=== PATIENT | female | born 1935 | race Caucasian/White ===

== ENCOUNTER 2017-03-05 22:43 | Emergency (ER) | payer MEDICARE, OTHER ==
[2017-03-05] MEDS ORDERED: LIDOCAINE VIS-MYLANTA 30 ML UD PO ONE (23:00)
[2017-03-05 23:01] VITALS: TEMP 100.1
--- NOTE | 2017-03-05 23:02 | ED.PDOC ---
History of Present Illness - General Chief Complaint: Chest Pain/TN Stated Complaint: CP, SOB Time Seen by Provider: 03/05/17 22:46 Source: patient, RN notes reviewed, Vital Signs reviewed Exam Limitations: no limitations - History of Present Illness Initial Comments: Patient comes in with c/o SOB and burning pain in her chest. Reports she woke up from sleep due to not being able to breath. At the same time she had a burning sensation from her stomach to the base of her throat. When she got her breath back she noticed her void was "gone". +nausea, no diaphoresis. No history of similar symptoms. She did have a big meal earlier tonight. Timing/Duration: 1/2 hour Severity: moderate Location: substernal Activities at Onset: sleep Prior Chest Pain/Cardiac Workup: no prior chest pain, no prior cardiac workup Improving Factors: nothing Worsening Factors: nothing Nitro Today/Relief: no nitro taken today Aspirin Treatment Today: no aspirin today Associated Symptoms: chest pain, nausea/vomiting, shortness of breath Allergies/Adverse Reactions: Allergies Penicillins Allergy (Verified 03/05/17 23:01) Home Medications: Ambulatory Orders Candesartan Cilexetil [Atacand] 32 mg PO BEDTIME 03/05/17 Hydrochlorothiazide 25 mg PO AC 03/05/17 Metoprolol Succinate [Toprol Xl] 200 mg PO AC 03/05/17 Review of Systems - Review of Systems Constitutional: States: no symptoms reported EENTM: States: other - hoarse voice Respiratory: States: short of breath Cardiology: States: chest pain - burning, substernal Gastrointestinal/Abdominal: States: nausea Musculoskeletal: States: no symptoms reported Skin: States: no symptoms reported Neurological: States: no symptoms reported All other Systems: No Change from Baseline Family Medical History - Family History Mother Family History: Unknown Physical Exam - Physical Exam General Appearance: Alert, Anxious, No apparent distress, Well Developed, Well Groomed, Well Hydrated, Well Nourished Eyes, Ears, Nose, Throat Exam: other - Hoarse voice, frequently clearing her throat Neck: supple, normal inspection Respiratory: chest non-tender, lungs clear, normal breath sounds, no respiratory distress, no accessory muscle use Cardiovascular/Chest: normal peripheral pulses, regular rate, rhythm, no edema, no gallop, no JVD, no murmur Peripheral Pulses: radial,right: 2+, radial,left: 2+, dorsalis pedis,right: 2+, dorsalis pedis,left: 2+ Gastrointestinal/Abdominal: normal bowel sounds, non tender, soft, no organomegaly Extremity: non-tender, normal inspection, no pedal edema Neurologic: alert, normal mood/affect, oriented x 3 Skin Exam: normal color, warm/dry Progress - Progress Progress: 03/05/17 23:52 Patient is feeling much better after GI cocktail and a zinc lozenge. Discussed labs, CXR and EKG. Discussed that her symptoms are classic for an episode of reflux. Normal cardiac enzymes. Recommended that she sleep with her head elevated. Follow up with PCP this week. She is agreeable with plan. Discussed risk of infection following aspiration. 03/05/17 23:55 - Results/Orders Results/Orders: Laboratory Tests 03/05/17 03/05/17 03/05/17 23:00 23:05 23:05 WBC 15.6 H RBC 4.11 L Hgb 12.9 Hct 38.6 MCV 93.9 MCH 31.3 H MCHC 33.4 RDW 13.7 Plt Count 216 MPV 9.3 Absolute Neuts (auto) 9.90 H Absolute Lymphs (auto) 4.00 H Absolute Monos (auto) 1.30 H Absolute Eos (auto) 0.20 Absolute Basos (auto) 0.20 H Neutrophils % 63.5 Lymphocytes % 25.6 Monocytes % 8.4 Eosinophils % 1.5 Basophils % 1.0 PT 11.0 INR 0.970 PTT (SP) 31.3 D-Dimer, Quantitative 347 H* Sodium 141 Potassium 3.6 Chloride 107 Carbon Dioxide 27 Anion Gap 10.6 L BUN 33 H Creatinine 1.22 BUN/Creatinine Ratio 27.0 H Random Glucose 131 H Serum Osmolality 290.3 Calcium 10.5 H Total Bilirubin < 0.2 L AST 20 ALT 18 Alkaline Phosphatase 107 Creatine Kinase 38 CK-MB (CK-2) 1.4 CK-MB (CK-2) % Not Reportable Troponin I < 0.02 B-Natriuretic Peptide 71.9 Serum Total Protein 7.0 Albumin 3.5 Globulin 3.5 Albumin/Globulin Ratio 1.0 L - EKG/XRAY/CT EKG: Sinus, nonspecific ST T wave Chg Comments: Rate 84 XRAY: chest - Findings suggestive of emphysemous changes, o/w no acute findings per Radiologist Departure - Departure Clinical Impression: Gastroesophageal reflux disease Qualifiers: Esophagitis presence: esophagitis presence not specified Qualified Code(s): K21.9 - Gastro-esophageal reflux disease without esophagitis Time of Disposition: 23:54 Disposition: Discharge to Home or Self Care Condition: Good Departure Forms: ED Discharge - Pt. Copy, Patient Portal Self Enrollment Instructions: DI for Gastroesophageal Reflux Disease (GERD) Diet: resume usual diet Activity: ambulate only with walker Home Medications: Ambulatory Orders Candesartan Cilexetil [Atacand] 32 mg PO BEDTIME 03/05/17 Hydrochlorothiazide 25 mg PO AC 03/05/17 Metoprolol Succinate [Toprol Xl] 200 mg PO AC 03/05/17 Additional Instructions: Follow up with PCP this week
--- NOTE | 2017-03-05 23:21 | RAD ---
EXAM: Frontal chest X-ray obtained. CLINICAL INDICATION: CP w/ SOB COMPARISON: None FINDINGS: There is relative paucity of lung markings in bilateral upper lobes. There is no focal airspace consolidation, pleural effusion or pneumothorax. The cardiomediastinal silhouette and pulmonary vasculature appear within normal limits, given the technique. Visualized osseous structures appear intact and grossly unremarkable, given the nondedicated imaging. IMPRESSION: Findings suggesting emphysematous changes. Correlation with pulmonary function testing is recommended. No focal airspace consolidation or pulmonary vascular congestion. Electronically signed by: Filippo Nuñez MD 03/05/2017 11:19 PM CDT Workstation: [id number]
[2017-03-06 00:01] VITALS: BP 154/81; O2SAT 96
== END 2017-03-06 00:02 | disposition home or self-care (01) ==
LOC: ER 22:43
DX: K21.9 Gastro-esophageal reflux disease without esophagitis (principal); Z88.0 Allergy status to penicillin